=== PATIENT | female | born 1985 | race Caucasian/White ===

== ENCOUNTER 2018-12-14 04:22 | Emergency (ER) | payer OTHER ==
[~2018-12-14] VITALS: Ht 152.4 cm; Wt 76.5 kg
[~2018-12-14 04:22] MED LIST: BENADRYL25 MG PO; BENTYL 20 MG TA20 M1 PO; HYDROCODONE-AP1 EAC6 PO; INVEGA 3 MG3 MG PO; NOHOMEMEDICATIONS; NORCO 5-325 TA1 EACH PO; PHENERGAN 25 MG25 M1 PO; PREDNISONE 20 M20 MG PO; PROZAC 20 MG20 MG PO; ZANTAC 150MG T150 M1 PO
[2018-12-14] MEDS ORDERED: IBUPROFEN 200200 M1 (04:29)
[2018-12-14 05:15] LABS: URINE BILIRUBIN NEGATIVE (Negative); URINE BLOOD 3+ (Negative); URINE CLARITY CLEAR; URINE COLOR YELLOW; URINE GLUCOSE-RANDOM* NEGATIVE (Negative); URINE KETONES NEGATIVE (Negative); URINE LEUKOCYTES-REFLEX NEGATIVE (Negative); URINE NITRITE-REFLEX NEGATIVE (Negative); URINE PROTEIN (DIPSTICK) NEGATIVE (Negative); URINE SPECIFIC GRAVITY 1.025 (1.005-1.035); URINE UROBILINOGEN 0.2 E.U./dl (0.2-1.0)
[2018-12-14 05:17] LABS: ABSOLUTE NEUTROPHILS 5.3 thou/uL (1.4-8.2); BASOPHILS 0.6 % (0.0-2.0); EOSINOPHILS 1.7 % (0.0-3.0); HEMATOCRIT 46.2 % (37.0-47.0); HEMOGLOBIN 15.8 gm/dL (12.0-15.0); LYMPHOCYTES 31.9 % (24.0-44.0); MCH 32.1 pg (26.0-34.0); MCHC 34.2 g/dL (28.0-37.0); MCV 93.9 fL (80.0-100.0); MONOCYTES 5.5 % (1.0-8.0); PLATELET COUNT 229 thou/uL (150-400); POLYS 60.3 % (36.0-66.0); RBC 4.93 mil/uL (4.20-5.00); WBC 8.9 thou/uL (4.0-11.0)
[2018-12-14 05:21] LABS: ANION GAP 10 mmol/L (7-16); BUN 15 mg/dL (7-18); CHLORIDE 105 mmol/L (98-107); CO2 27 mmol/L (21-32); CREATININE 0.7 mg/dL (0.6-1.0); GLUCOSE 125 mg/dL (74-106); SODIUM 142 mmol/L (136-145)
[2018-12-14 05:27] LABS: ALBUMIN 3.5 g/dL (3.4-5.0); DIRECT BILIRUBIN < 0.1 mg/dL (<0.1-0.3); LIPASE 85 U/L (73-393); SGOT 17 U/L (15-37); SGPT 23 U/L (30-65); TOTAL BILIRUBIN 0.3 mg/dL (<0.1-1.0); TOTAL PROTEIN 7.3 g/dL (6.4-8.2)
[2018-12-14 05:33] LABS: SQUAMOUS 0-3 Few /LPF (0-3)
[2018-12-14 05:34] LABS: BACTERIA-REFLEX 1-9 Few /HPF (None Seen); CASTS None Seen /LPF (None Seen); CRYSTALS None Seen /LPF (None Seen); MUCUS 0-3 Light strn/LPF (None Seen); URINE WBC-REFLEX None Seen /HPF (0-5)
[2018-12-14] MEDS ORDERED: ZOFRAN ODT4 MG DISSOLVE (08:15)
[2018-12-14] MEDS ORDERED: NORCO 5-325 TA1 EAC1 PO (08:15)
[2018-12-14 08:42] VITALS: BP 148/97
== END 2018-12-14 08:50 | disposition home or self-care (01) ==
LOC: ER 04:22
PROVIDERS: Emergency Medicine
DX: K80.20 Calculus of gallbladder without cholecystitis without obstruction (principal); K59.00 Constipation, unspecified; J45.909 Unspecified asthma, uncomplicated; F17.210 Nicotine dependence, cigarettes, uncomplicated

== ENCOUNTER 2018-12-28 05:27 | Day surgery (SDC) | payer OTHER ==
[~2018-12-28] VITALS: Ht 162.6 cm; Wt 76.2 kg
--- NOTE | ~2018-12-28 | O ---
[facility] [place] [address] OPERATIVE REPORT Name: BENJAMIN SHARPE Room #: [facility]#: [id number] Admission: 12/28/18 ������������������ Attend Phys: Tarik Rodriguez, Discharge: 12/28/18 ������������������ Date of : 85 Report #: [id number] THIS REPORT FOR: //name// CC: GORDY physician/PCP Tarik Rodriguez DATE OF SERVICE: 12/28/2018 PREOPERATIVE DIAGNOSIS: Symptomatic cholelithiasis. POSTOPERATIVE DIAGNOSIS: Acute cholecystitis. PROCEDURE: Laparoscopic cholecystectomy with intraoperative cholangiogram. SURGEON: Tarik Rodriguez MD ANESTHESIA: General. ESTIMATED BLOOD LOSS: Minimal. SPECIMEN: Gallbladder. DESCRIPTION OF PROCEDURE: After informed consent was obtained, the patient was brought to the operating room and placed supine. SCDs were placed and working, preoperative antibiotics were administered, and general anesthesia was induced. The abdomen was prepped and draped in the usual sterile fashion. A 10-mm incision was made above the umbilicus. The fascia was incised and a trocar was placed. Pneumoperitoneum was established. Three right upper quadrant 5-mm ports were placed. The gallbladder was grasped at the fundus and retracted cephalad. Infundibulum was grasped and retracted laterally. I dissected out the cystic duct and the cystic artery. The gallbladder was severely inflamed. There were stones impacted at the cystic duct junction. I therefore elected to perform a cholangiogram. Cholangiogram catheter was inserted. A ductotomy was made in the cystic duct. This was a very short cystic duct. Catheter was inserted and cholangiogram was performed. This demonstrated filling of the cystic duct, which was very short, common bile duct, common hepatic duct, bifurcation of the hepatics, smooth easy flow into the duodenum. This was normal. Cholangiogram catheter was then removed. The cystic duct was then clipped. It was then cut. I then placed a PDS Endoloop around the very short cystic duct stump. Cystic artery was clipped and ligated with a clip inventory checker. The gallbladder was then taken off the liver bed with electrocautery. It was placed into an Endopouch and removed. Fascia was closed with a [id number] 0 Vicryl. Skin was closed with 4-0 Monocryl. Incisions were sealed with Dermabond. [address] [address] OPERATIVE REPORT Name: BENJAMIN SHARPE [id number] Admission: 12/28/18 ������������������ Attend Phys: Tarik Rodriguez, Discharge: 12/28/18 ������������������ Date of : 85 Report #: [id number] COMPLICATIONS: None. DISPOSITION: The patient was taken to recovery in satisfactory condition. ��������������������������������������������� ���������������������������������������� By: ��������������������������������������������� 1218 1319 Tarik Rodriguez MD /nt
[~2018-12-28 05:27] MED LIST changes: +IBUPROFEN 200200 M1 PO; +NORCO 5-325 TA1 EAC1 PO; +ZOFRAN ODT4 MG DISSOLVE
[2018-12-28 08:00] VITALS: BP 115/79
--- NOTE | 2018-12-30 14:05 | PATH ---
[facility] [address] [place] [address] PATHOLOGY RPT PROCEDURE Name: LEXI SHARPE Room #: [facility].#: [id number] ������������������ Admission: 12/28/18 ������������������ Date of : 85 Discharge: 12/28/18 Report #: [id number] Path Case #: [id number] [facility] Accession Number: [id number] . 01 Material submitted: . gallbladder - GALLBLADDER AND CONTENTS . 01 Clinical history: . Gallstones . 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 - Gangrenous and hemorrhagic necrotic gallbladder with complete surface ulceration. 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 02 Electronically signed: . Rachel Ny MD, Pathologist NPI- [id number] . 01 Gross description: . The specimen is received in formalin, labeled "Lexi Sharpe, gallbladder and contents", is a disrupted, finley, hemorrhagic fragment measuring 7.5 x 2.0 cm. The recognizable serosa is finley-pink and hemorrhagic and the mucosa is granular. No discrete cystic duct, calculi identified. The specimen has an average wall of 0.1 cm. Representatively submitted in A1. A specimen photograph is taken. (SWS; 12/28/2018) SHS/ . 02 Pathologist provided ICD-10: K81.0, K82.8 . 02 CPT . 622162 Specimen Comment: A courtesy copy of this report has been sent to Specimen Comment: [phone]. Specimen Comment: Report sent to Performed at: [address] [id number] MD Kip Sanchez MD Phone: [phone] Performed at: [address] [id number] [address] [address] PATHOLOGY RPT PROCEDURE Name: LEXI SHARPE Room #: DEP [facility] [place] [facility] M.Vinay.#: [id number] ������������������ Admission: 12/28/18 ������������������ Date of : 85 Discharge: 12/28/18 Report #: [id number] Path Case #: [id number] MD Rachel Ny MD Phone: [phone]
== END 2018-12-28 11:20 | disposition home or self-care (01) ==
LOC: TBA 05:27 → OR 05:27 → TBA 05:28 → OR 09:25
DX: K81.0 Acute cholecystitis (principal); F17.210 Nicotine dependence, cigarettes, uncomplicated; Z91.040 Latex allergy status; Z98.890 Other specified postprocedural states; Z79.891 Long term (current) use of opiate analgesic
CPT/HCPCS: 50010; 50101; 50411; 50555; 51297; 51474; 51489; 51975; 52265; 52266; 53307; 53310; 53314; 54118; 55245; 55317; 56462; 56525; 56526; 62110; 62900; 70005